=== PATIENT | male | born 1970 | race African-American/Black ===

== ENCOUNTER 2016-05-27 23:05 | Emergency (ER) | payer SELFPAY ==
--- NOTE | ~2016-05-27 | CR169 ---
[facility]. [facility] A Service of [facility] RADIOLOGY TEXT RESULTS PATIENT: AUREA EUBANKS LOCATION: SED : 70 UNIT #: [id number] AGE: [address]: José Miguel Drake SEX: M ORDER DR: [id number] [place] [id number] E MR#: [id number] Acc #: [id number] NAME: AUREA EUBANKS : 1970 SEX: M STUDY DATE/TIME: 05/27/2016 23:11 UNIT: SED ROOM: STUDY DESCRIPTION: CR Knee 2 Views Lt Attending Physician: José Miguel Drake P.A.-C. Ordering Physician: José Miguel Drake P.A.-C. Primary Care Physician: Primary Care Physician No MEDICAL IMAGING REPORT This report is preliminary unless electronic signature is present. EXAM Left knee, 05/27/2016 at 23:11 INDICATIONS Knee pain for 4 days. No trauma. FINDINGS 2 views of the left knee were obtained. There is no fracture or malalignment. There is no joint effusion. IMPRESSION Negative left knee. Dictated by... René Duron Jr., M.D. THIS IS AN ELECTRONICALLY VERIFIED REPORT René Duron Jr., M.D. at 05/28/2016 6:07 AM VINCE/madhu TD: 05/28/2016 01:59 JOB #: [id number] MEDICAL IMAGING REPORT Page 1 of 1
--- NOTE | ~2016-05-27 | CR170 ---
[facility] A Service of [facility] RADIOLOGY TEXT RESULTS PATIENT: AUREA EUBANKS LOCATION: SED : 70 UNIT #: [id number] AGE: [address]: José Miguel Drake SEX: M ORDER DR: [id number] [place] [id number] E MR#: [id number] Acc #: [id number] NAME: AUREA EUBANKS : 1970 SEX: M STUDY DATE/TIME: 05/27/2016 23:11 UNIT: SED ROOM: STUDY DESCRIPTION: CR Knee 2 Views Rt Attending Physician: José Miguel Drake P.A.-C. Ordering Physician: José Miguel Drake P.A.-C. Primary Care Physician: Primary Care Physician No MEDICAL IMAGING REPORT This report is preliminary unless electronic signature is present. EXAM Right knee, 05/27 at 23:11 INDICATIONS Knee pain for 4 days. No trauma. FINDINGS AP and lateral views of the right knee were obtained. There is no fracture or malalignment. There is no joint effusion. IMPRESSION Negative right knee. Dictated by... René Duron Jr., M.D. THIS IS AN ELECTRONICALLY VERIFIED REPORT René Duron Jr., M.D. at 05/28/2016 6:07 AM VINCE/miriam TD: 05/28/2016 02:05 JOB #: [id number] MEDICAL IMAGING REPORT Page 1 of 1
[~2016-05-27 23:05] MED LIST: NO MEDICATIONS
== END 2016-05-28 00:05 | disposition home or self-care (01) ==
LOC: SED 23:05
DX: M25.561 Pain in right knee (principal); M25.562 Pain in left knee; I10 Essential (primary) hypertension; M10.9 Gout, unspecified; F17.210 Nicotine dependence, cigarettes, uncomplicated
CPT/HCPCS: 73560; 99284